=== PATIENT | female | born 1930 | race Caucasian/White ===

== ENCOUNTER → 2016-06-28 | Outpatient (REF) | payer MEDICARE ==
[2016-06-28 15:25] LABS: BASOPHILS % (AUTO) 1 % (0-2); EOSINOPHILS # (AUTO) 0.4 10^3uL; EOSINOPHILS % (AUTO) 7 % (0-4); LYMPHOCYTES # (AUTO) 1.2 X10^3; MEAN CORPUSCULAR HGB CONC 33.5 g/dL (31.0-37.0); MEAN CORPUSCULAR VOLUME 92 FL (80-100); MEAN PLATELET VOLUME 11.1 FL (6.0-9.5); MONOCYTES # (AUTO) 0.4 X10^3; MONOCYTES % (AUTO) 8 % (3-11); NEUTROPHILS % (AUTO) 59 % (51-67); PLATELET COUNT 180 10^3uL (150-450); WHITE BLOOD COUNT 5.04 10^3uL (4.0-11.0)
[2016-06-28 15:39] LABS: ALBUMIN 3.5 g/dL (3.4-5.0); ANION GAP 11.3 MEQ/L (3-15); CALCULATED IONIZED CALCIUM 4.5 mg/dL (3.8-4.6); MAGNESIUM* 1.9 mg/dL (1.6-2.3)
== END ==
LOC: LAB 15:02
PROVIDERS: ATTEND Family Medicine
DX: I10 Essential (primary) hypertension (principal); E87.1 Hypo-osmolality and hyponatremia; E07.89 Other specified disorders of thyroid; E83.42 Hypomagnesemia
CPT/HCPCS: 80053; 83735; 84443; 85025

== ENCOUNTER → 2016-07-07 | Outpatient (REF) | payer MEDICARE ==
[2016-07-07 17:43] LABS: RBC,URINE 0-2 /HPF; URINE CENTRIFUGED VOLUME 12 mL
== END ==
LOC: LAB 16:37
PROVIDERS: ATTEND Nurse Practitioner Family
DX: R30.9 Painful micturition, unspecified (principal)
CPT/HCPCS: 81015; 87088

== ENCOUNTER → 2016-09-29 | Outpatient (REF) | payer MEDICARE ==
[~2016-09-29] MED LIST: ALEN70TA47 PO; AMIO200T2 PO; ASCO1TAB22 PO; ASPI-586 PO; CALC-140 PO; CARV12.5 PO; CLIN-78 PO; DOXA4TAB PO; DOXA8TAB73 PO; FERR324T7 PO; HYDR-3702 PO; IRON18TA PO; LEVO100T7 PO; LEVO75TA4 PO; LISI-596 PO; LISI1TAB10 PO; LOVA20TA2 PO; LSNP20T PO; MAGN250T PO; MGX400T PO; OMEG300C3 PO; OMEP20CA12 PO; POTA99TA7 PO; PRED1TAB PO; SULF-228 PO; TRIA10PO3 MC
== END ==
LOC: LAB 10:00
PROVIDERS: ATTEND Nurse Practitioner Family
DX: M81.0 Age-related osteoporosis without current pathological fracture (principal); E78.4 Other hyperlipidemia
CPT/HCPCS: 80061; 82306